=== PATIENT | female | born 1940 | race Caucasian/White ===

== ENCOUNTER → 2016-08-30 | Outpatient (CLI) | payer MEDICARE | END | disposition home or self-care (01) | LOC: KCIC MAMMO 12:35 | PROVIDERS: ATTEND Family Medicine | DX: Z12.31 Encounter for screening mammogram for malignant neoplasm of breast (principal) | CPT/HCPCS: G0202; 77067 ==

== ENCOUNTER → 2017-02-23 | Outpatient (CLI) | payer BC ==
[2017-02-23 14:36] LABS: BASO % 1 % (0-3); EOS % 1 % (0-3); HEMATOCRIT 41.8 % (36.0-47.0); HEMOGLOBIN 13.6 g/dL (12.0-15.5); LYMPH # 2.6 x10^3/uL (1.0-4.8); LYMPH % 40 % (24-48); MEAN CORPUSCULAR HEMOGLOBIN 28 pg (25-35); MEAN CORPUSCULAR HGB CONC 33 g/dL (31-37); MEAN CORPUSCULAR VOLUME 85 fL (79-100); MONO % 8 % (0-9); NEUT % 51 % (31-73); PLATELET COUNT 206 x10^3/uL (140-400); RED CELL DISTRIBUTION WIDTH 15.6 % (11.5-14.5); WHITE BLOOD COUNT 6.6 x10^3/uL (4.0-11.0)
[2017-02-23 15:00] LABS: ALBUMIN 3.9 g/dL (3.4-5.0); ALBUMIN/GLOBULIN RATIO 0.9 (1.0-1.7); CALCIUM 9.6 mg/dL (8.5-10.1); CREATININE 0.8 mg/dL (0.6-1.0); GFR 69.4; TOTAL BILIRUBIN 0.3 mg/dL (0.2-1.0); TOTAL PROTEIN 8.1 g/dL (6.4-8.2)
[2017-02-23 15:02] LABS: CHOLESTEROL/HDL RATIO 3.8
[2017-02-23 15:10] LABS: FREE T4 1.06 ng/dL (0.76-1.46)
== END ==
LOC: LAB 14:15
PROVIDERS: ATTEND Family Medicine
DX: J44.9 Chronic obstructive pulmonary disease, unspecified (principal); M89.9 Disorder of bone, unspecified; I10 Essential (primary) hypertension; F32.9 Major depressive disorder, single episode, unspecified
CPT/HCPCS: 36415; 80053; 80061; 82306; 84439; 84443; 85025

== ENCOUNTER → 2017-09-29 | Outpatient (CLI) | payer BC | END | disposition home or self-care (01) | LOC: KCIC MAMMO 12:39 | DX: Z12.31 Encounter for screening mammogram for malignant neoplasm of breast (principal) | CPT/HCPCS: 77063; 77067 ==

== ENCOUNTER → 2017-10-07 | Outpatient (CLI) | payer BC ==
[2017-10-07] MEDS: IOHEXOL 300 MG/ML 100ML VIAL. IV (10:53)
== END | disposition home or self-care (01) ==
LOC: KCIC CT 10:11
DX: E04.1 Nontoxic single thyroid nodule (principal); I77.810 Thoracic aortic ectasia; K44.9 Diaphragmatic hernia without obstruction or gangrene; I25.10 Atherosclerotic heart disease of native coronary artery without angina pectoris; I51.7 Cardiomegaly; Z85.118 Personal history of other malignant neoplasm of bronchus and lung
CPT/HCPCS: 71260; Q9967

== ENCOUNTER → 2017-10-18 | Outpatient (CLI) | payer BC | END | disposition home or self-care (01) | LOC: KCIC US 11:14 | DX: E04.1 Nontoxic single thyroid nodule (principal) | CPT/HCPCS: 76536 ==

== ENCOUNTER → 2018-03-27 | Outpatient (CLI) | payer BC ==
[~2018-03-27] MED LIST: BENZ-8 PO; FLUT10.6 IH; IPRA4AER IH; METO-239 PO; OMEP20CA9 PO; VENTOLIN HFA18 GM INH
--- NOTE | 2018-03-28 10:50 | KCIC ---
THYROID ULTRASOUND History: Thyroid nodule Comparison: October 18, 2017 Findings: Multiple sonographic images of the thyroid gland are submitted. Right lobe measured 4.4 x 1.3 x 1.6 cm the left lobe measured 4.9 x 1.5 x 1.7 cm. Isthmus measured 0.7 cm in thickness. There is a more solid somewhat heterogeneous nodule of the inferior medial right gland about 1 x 0.7 x 0.9 cm along the isthmus, mild internal vascularity. Previously this was measured at 0.7 x 0.7 x 0.5 cm, somewhat larger. There is another small solid heterogeneous nodule of the mid right gland about 0.5 by 0.6 x 0.4 cm in size, not demonstrated on previous exam. There is a hypoechoic lesion which is likely mostly cystic more superiorly of the right gland up to 0.5 x 0.3 x 0.4 cm which is fairly similar, probable small focus of associated calcification. There is another small solid nodule of the mid right gland about 0.6 cm in size, not demonstrated on the previous exam. There is a septated cystic lesion of the mid left gland about 2.5 x 1.2 x 2 cm previously about 2.6 x 2 x 1.3 cm overall similar. There is mild internal vascularity on color Doppler imaging. Impression: 1. On the right, 2 of the solid nodules are new or not demonstrated on previous exam. Previously demonstrated solid mass along the right isthmus is somewhat larger. Dominant partially cystic lesion on the left is stable. Electronically signed by: Fer Gomez MD (03/28/2018 10:46 AM) [facility]
== END | disposition home or self-care (01) ==
LOC: KCIC US 12:39
PROVIDERS: ATTEND Family Medicine
DX: E04.2 Nontoxic multinodular goiter (principal); I10 Essential (primary) hypertension; J44.9 Chronic obstructive pulmonary disease, unspecified; I25.10 Atherosclerotic heart disease of native coronary artery without angina pectoris; Z85.118 Personal history of other malignant neoplasm of bronchus and lung
CPT/HCPCS: 76536

== ENCOUNTER → 2018-04-25 | Outpatient (CLI) | payer BC ==
--- NOTE | 2018-04-25 16:20 | RAD ---
Indication: Bilateral thyroid nodule biopsy TECHNIQUE: After explaining risks and benefits of the procedure, informed consent was obtained. The skin over the thyroid was prepped and draped using usual sterile procedure. 1 percent lidocaine was used for local anesthesia. Under ultrasound guidance total of 4 FNA passes were made for each of the right and left thyroid nodules. Samples were collected by pathology staff. COMPARISON: Ultrasound from 03/27/2018 FINDINGS: Four FNA passes made for each of the right and left dominant nodules. The left multicystic lesion yielded dark brown-colored fluid. IMPRESSION: Bilateral thyroid nodule biopsy without immediate complications. Pathology results pending. Electronically signed by: Michael Hidalgo DO (04/25/2018 4:17 PM) [facility]
--- NOTE | 2018-04-27 14:10 | PATHOLOGY ---
Note [facility] Accession Number: [id number] TESTS RESULT FLAG UNITS REF RANGE LAB Clinician Provided Cytology Information No. of containers..01 Other (Miscellaneous) Source: LEFT THYROID DIAGNOSIS: LEFT THYROID ETHESDA CATEGORY II: NEGATIVE FOR MALIGNANT CELLS. SCANT FOLLICULAR CELLS ARE PRESENT. COLLOID IS PRESENT. FOAM CELLS ARE PRESENT. THE FINDINGS ARE CONSISTENT WITH A BENIGN PROCESS SUCH A COLLOID NODULE Signed out by: Santo Willard MD, Pathologist NPI- [id number] Performed by: Kaity Moreno, Fire And Explosion Investigator ([facility]) Gross description: 30ML, RED, SOLID /LCS FLAG LEGEND: L-Low Normal,H-High Normal,LL-Alert Low,HH-Alert High <-Panic Low,>-Panic High,A-Abnormal,AA-Critical Abnormal Performed at: [address] [place] [address] Jason Caruso MD, 02 [facility] [address] [place] [address] Jaziel Celaya MD, Specimen Comment: A courtesy copy of this report has been sent to Specimen Comment: [phone]. Specimen Comment: Report sent to Specimen Comment: A duplicate report has been generated due to demographic updates. Performed at: [address] [place] [address] [facility] [address], [place], [place] [id number] MD Jason Caruso MD Phone: [phone]
--- NOTE | 2018-04-28 09:09 | PATHOLOGY ---
Note [facility] Accession Number: [id number] TESTS RESULT FLAG UNITS REF RANGE LAB Clinician Provided Cytology Information No. of containers..01 Other (Miscellaneous) Source: RIGHT THYROID DIAGNOSIS: RIGHT THYROID NEGATIVE FOR MALIGNANT CELLS. BETHESDA CATEGORY II. SPECIMEN CONSISTS OF ABUNDANT BENIGN FOLLICULAR CELLS, HEMOSIDERIN-LADEN MACROPHAGES, SCANT COLLOID AND BLOOD. THE PATTERN IS CONSISTENT WITH A BENIGN PROCESS SUCH A COLLOID NODULE OR AN ADENOMATOID NODULE. Pathologist ICD10: 02 E04.1 Diagnosis provided b Santo Willard MD, Pathologist NPI- [id number] Signed out by: Santo Willard MD, Pathologist NPI- [id number] Performed by: Kaity Moreno, Talent Acquisition Assistant ([facility]) Gross description: 01 30ML, NONE, CLEAR /LCS FLAG LEGEND: L-Low Normal,H-High Normal,LL-Alert Low,HH-Alert High <-Panic Low,>-Panic High,A-Abnormal,AA-Critical Abnormal Performed at: [facility] [address] [facility] [address] [place] [address] Jason Caruso MD, 02 [facility] [address] [place] [address] Jaziel Celaya MD, 03 [facility] [address] [address] Tihago Hines MD, Specimen Comment: A courtesy copy of this report has been sent to Specimen Comment: [phone]. Specimen Comment: Report sent to Performed at: [address], [place], [place] [id number] MD Jason Caruso MD Phone: [phone]
== END | disposition home or self-care (01) ==
LOC: US 09:45
PROVIDERS: ATTEND Family Medicine
DX: E04.1 Nontoxic single thyroid nodule (principal)
CPT/HCPCS: 10022; 60300; 76942; 88173

== ENCOUNTER → 2018-10-02 | Outpatient (CLI) | payer BC ==
[~2018-10-02] MED LIST changes: +OMEP20CA10 PO; -OMEP20CA9 PO
--- NOTE | 2018-10-02 17:43 | KCIC ---
Bilateral digital screening mammograms with 3-D tomosynthesis: Reason for examination: Routine screening. Comparison is made to previous studies dated 09/29/2017 and 08/30/2016. Bilateral mammograms in CC and oblique projections were obtained with 2-D imaging and 3-D tomosynthesis imaging on a Siemens Inspiration unit and reviewed on the workstation. Interpretation was made with the benefit of CAD. The skin and nipples show no abnormalities. No abnormal axillary lymph nodes are seen. The breast parenchyma is extremely dense. (Breast density: Category D.) There are no dominant masses, suspicious calcifications or architectural distortion. Benign calcifications are present. Impression: No evidence of malignancy. Recommend routine screening. Your patient's mammogram demonstrates that she has dense breast tissue (breast density category C or D), which could hide abnormalities, and if she has other risk factors for breast cancer that have been identified, she might benefit from supplemental screening tests that may be suggested by you as her ordering physician. Dense breast tissue, in and of itself, is a relatively common condition. Therefore, this information is not provided to cause undue concern, but rather to raise your awareness and to promote discussion with your patient regarding the presence of other risk factors, in addition to dense breast tissue. Your patient's mammography results will be sent to her. BI-RAD Category 2: Benign. "Our facility is accredited by the [employer] Mammography Program." This patient's information has been entered into a reminder system for the patient to be notified with the results of her examination and a target date for the next mammogram. Electronically signed by: Dominique Abdi MD (10/02/2018 5:40 PM) [id number]
== END | disposition home or self-care (01) ==
LOC: KCIC MAMMO 14:01
PROVIDERS: ATTEND Family Medicine
DX: Z12.31 Encounter for screening mammogram for malignant neoplasm of breast (principal)
CPT/HCPCS: 77063; 77067

== ENCOUNTER → 2018-11-29 | Outpatient (CLI) | payer BC ==
--- NOTE | 2018-11-29 12:59 | KCIC ---
MRI of the brain without contrast 11/29/2018 Clinical History: Dysarthria. Slurred speech. Headache. Bilateral leg weakness. Hypertension. Technique: Unenhanced T1-weighted sagittal and axial, T2-weighted axial and coronal and FLAIR, gradient echo and diffusion-weighted axial images of the brain were obtained. Findings: Comparison is made to patient's CT scan of the head dated 12/26/2012. There is generalized parenchymal atrophy. Patchy, confluent and multiple small focal areas of increased signal intensity are seen within the periventricular and subcortical white matter of both cerebral hemispheres on the FLAIR and T2-weighted images consistent with areas of fairly extensive small vessel ischemic disease. No acute parenchymal abnormality is seen. No extra-axial fluid collection is seen. There is no MRI evidence of acute ischemia/infarction. The paranasal sinuses are essentially clear. Normal flow voids are seen within the major vascular structures surrounding the brain parenchyma. Impression: No acute parenchymal abnormality is seen. Electronically signed by: Hector Rainey MD (11/29/2018 12:56 PM) [facility]
== END | disposition home or self-care (01) ==
LOC: KCIC MRI 10:39
PROVIDERS: ATTEND Family Medicine
DX: G31.89 Other specified degenerative diseases of nervous system (principal); I10 Essential (primary) hypertension
CPT/HCPCS: 70551

== ENCOUNTER → 2019-01-09 | Outpatient (CLI) | payer BC ==
--- NOTE | 2019-01-09 15:09 | KCIC ---
Clinical Indications: Hypertension, cerebral microvascular disease. Exam : Carotid Duplex with Grayscale Ultrasound and Spectral and Color Doppler Analysis: PQRS Compliance Statement - Stenosis calculations for CT, MR and conventional angiography are based upon measurement of the distal ICA diameter in accordance with the NASCET methodology. Stenosis calculations for carotid ultrasound studies are derived from validated velocity criteria which are known to correlate with the NASCET methodology. Comparison study: None available. Findings: The common, internal and external carotid arteries were examined by grayscale, color and spectral Doppler ultrasound. Mild atherosclerotic calcifications identified in the bilateral carotid bulbs and the proximal internal and external carotid arteries. Flow in both vertebral arteries was antegrade and normal. The following are the velocities and ratios in the carotid arteries on both sides: RIGHT ICA PV: 95cm/sec RIGHT CCA PV: 73cm/sec RIGHT ICA ED: 21cm/sec RIGHT IC/CCPV: 1.1 RIGHT VERTEBRAL: antegrade flow RIGHT % STENOSIS: Less than 50% LEFT ICA PV: 78cm/sec LEFT CCA PV: 66cm/sec LEFT ICA ED: 21cm/sec LEFT IC/CCPV: 1.2 LEFT VERTEBRAL: antegrade flow LEFT % STENOSIS: Less than 50% <50% ICA Stenosis: PSV < 125cm/s (EDV < 40cm/s; SVR < 2.0) 50-69% ICA Stenosis: PSV < 125-229cm/s (EDV 40-99cm/s; SVR 2.0-3.9) >70% ICA Stenosis: PSV > 230cm/s (EDV >100cm/s; SVR >4.0) Impression: No evidence of hemodynamically significant stenosis. Electronically signed by: Bam Dumont MD (01/09/2019 3:06 PM) [facility]
== END | disposition home or self-care (01) ==
LOC: KCIC US 10:32
PROVIDERS: ATTEND Family Medicine
DX: I65.23 Occlusion and stenosis of bilateral carotid arteries (principal); I10 Essential (primary) hypertension
CPT/HCPCS: 93880

== ENCOUNTER → 2019-01-24 | Outpatient (CLI) | payer BC ==
--- NOTE | 2019-01-24 14:00 | KCIC ---
CT of the chest without contrast 01/24/2019 INDICATION: History of lung cancer COMPARISON STUDY: Chest CT October 07, 2017, January 08, 2016 TECHNIQUE: Multidetector CT imaging of the chest was performed without contrast. FINDINGS: Anterior mediastinal nodule measuring 2.1 x 1.3 cm is stable. Heart size is normal. No pericardial effusion of significance is seen. Coronary calcification noted. Mild ectasia of the ascending thoracic aorta to 3.9 cm is grossly stable. No pathologically enlarged mediastinal adenopathy is identified. Cystic nodule within the left thyroid gland has significantly increased in size measuring 2.7 cm in maximal diameter. CT is limited for evaluation of the thyroid. Consider follow-up ultrasound given change from comparison studies. Paraesophageal hernia is similar in appearance. No pneumothorax or pleural effusion is identified. No acute appearing focal consolidation is seen. Limited visualization of the upper abdomen is unremarkable. Bony thorax is grossly intact. Impression: 1. Stable anterior mediastinal nodule 2. Cystic nodule in the left thyroid is increase in size measuring 2.7 cm on today's exam previously measuring approximately 1.5 cm. Recommend follow-up ultrasound for further characterization. 3. Otherwise stable appearance of the chest. Chronic changes noted above. CT DOSING PQRS STATEMENT: One or more of the following individualized dose reduction techniques were utilized for this examination: 1. Automated exposure control 2. Adjustment of the mA and/or kV according to patient size 3. Use of iterative reconstruction technique Electronically signed by: Vincent Park MD (01/24/2019 1:57 PM) [id number]
== END | disposition home or self-care (01) ==
LOC: KCIC CT 12:18
PROVIDERS: ATTEND Internal Medicine Pulmonary Disease
DX: J98.59 Other diseases of mediastinum, not elsewhere classified (principal); J44.9 Chronic obstructive pulmonary disease, unspecified; I77.810 Thoracic aortic ectasia; I25.10 Atherosclerotic heart disease of native coronary artery without angina pectoris; E04.1 Nontoxic single thyroid nodule; K44.9 Diaphragmatic hernia without obstruction or gangrene; I10 Essential (primary) hypertension; Z85.118 Personal history of other malignant neoplasm of bronchus and lung; Z87.891 Personal history of nicotine dependence
CPT/HCPCS: 71250

== ENCOUNTER → 2019-02-12 | Outpatient (CLI) | payer BC ==
--- NOTE | 2019-02-12 13:59 | KCIC ---
US SOFT TISSUE HEAD AND NECK CLINICAL INDICATION: Thyroid nodules. Follow-up. PROCEDURE: Transverse and longitudinal grayscale and color Doppler images of the thyroid were obtained. COMPARISON: 03/27/2018 FINDINGS: Right: Measures 3.6 x 1.8 x 2.1 cm. Multiple hypoechoic nodules are seen in the right thyroid lobe, the largest mixed echogenicity nodule in the inferior thyroid lobe measuring 1.0 x 0.8 x 0.8 cm, previously 1.0 x 0.7 x 0.9 cm. Isthmus: Measures 4.4 mm and is within normal limits. Left: Measures 4.5 x 2.7 x 1.8 cm with multiple nodules. There is a large solid and cystic nodule in the inferior left thyroid lobe measuring 3.0 x 2.0 x 2.6, previously 2.5 x 1.2 x 2.0 cm. Another hypoechoic nodule adjacent to the above-mentioned dominant nodule measures 0.9 x 0.5 x 1.0 cm. IMPRESSION: 1. Multiple right thyroid lobe nodules, the dominant nodule is stable in size. 2. Interval increase in the size of complex left lower thyroid lobe nodule. Clinically correlate with previous. Short-term follow-up ultrasound recommended. Electronically signed by: Michael Hidalgo DO (02/12/2019 1:57 PM) [facility]
== END | disposition home or self-care (01) ==
LOC: KCIC US 12:09
PROVIDERS: ATTEND Family Medicine
DX: E04.2 Nontoxic multinodular goiter (principal)
CPT/HCPCS: 76536

== ENCOUNTER → 2019-12-26 | Outpatient (CLI) | payer BC ==
[~2019-12-26] MED LIST changes: -OMEP20CA10 PO; +OMEP20CA16 PO
--- NOTE | 2019-12-26 13:19 | RAD ---
THYROID ULTRASOUND History: Thyroid nodule. Comparison: Thyroid ultrasound February 12, 2019. Technique: Multiple grayscale and color Doppler images of the thyroid gland were obtained. Findings: Measurements in length, AP (height), and transverse (width), respectively, unless otherwise stated. The right thyroid lobe measures 4 x 2 x 1.4 cm. There are multiple tiny nodules in the right thyroid lobe. Dominant nodule inferiorly has maximum dimension of 10 mm, unchanged. This nodule is characterized as TR3. The isthmus measures 5 mm. Left thyroid lobe measures 5.1 x 1.5 x 2.8 cm. TR3 nodule of the mid left thyroid lobe has maximum dimension of 12 mm, previously 10 mm, mainly due to differences in measurement technique. Dominant nodule in the inferior left thyroid lobe measures 3.1 x 2.2 x 2.7 cm, previously 3.0 x 1.9 x 2.6 cm. Nodule previously was more solid than cystic but is now more cystic than solid and is characterized as TR2. ACR Thyroid Imaging, Reporting And Data System (TI-RADS): White Paper Of The ACR TI-RADS Committee. Journal of the [employer], volume 14, issue 5, pages 587-595 (October 2016). IMPRESSION: Thyroid nodules are not significantly changed. Electronically signed by: Juan Cabrera MD (12/26/2019 1:16 PM) [id number]
== END | disposition home or self-care (01) ==
LOC: US 10:12
PROVIDERS: ATTEND Family Medicine
DX: E04.1 Nontoxic single thyroid nodule (principal)
CPT/HCPCS: 76536

== ENCOUNTER → 2020-10-22 | Outpatient (CLI) | payer MEDICARE ==
[~2020-10-22] MED LIST changes: +CONTRAST GIVEN. MC PRN; +IOHEXOL 240 MG/ML 50ML VIAL. PO ONE; +IOHEXOL 300 MG/ML 100ML VIAL. IV ONE
--- NOTE | 2020-10-22 14:20 | KCIC ---
EXAM: Lumbar spine, 3 views. HISTORY: Pain. COMPARISON: None. FINDINGS: 3 views of the lumbar spine are obtained. There is lumbar dextroscoliosis and straightening of lumbar lordosis. There is grade 1 anterolisthesis of L3 on L4 and L4 on L5. There is complete los s of the disc space at L3-L4 and near complete loss of the disc space at L4-L5. There is multilevel e ndplate remodeling and facet arthropathy. L IMPRESSION: Multilevel degenerative change throughout the lumbar spine, primarily at L3-L4 and L4-L5. No acute osseous finding. Electronically signed by: Jeni Fuentes MD (10/22/2020 2:17 PM) [id number]
--- NOTE | 2020-10-22 16:50 | KCIC ---
EXAM: Abdomen and pelvis CT with intravenous contrast. HISTORY: Pain. TECHNIQUE: Computed tomographic images of the abdomen and pelvis were obtained following the administ ration of intravenous contrast. Multiplanar reformatting was performed. *One or more of the following individualized dose reduction techniques were utilized for this examina tion: 1. Automated exposure control. 2. Adjustment of the mA and/or kV according to patient size. 3. Use of iterative reconstruction technique. COMPARISON: None. FINDINGS: Evaluation of the lower thorax demonstrates a large hiatal hernia with intrathoracic positi oning of the stomach. There is cardiomegaly. There is calcification of the aortic valve and mitral va lve annulus. There is a small hepatic cyst. No suspicious hepatic lesion is seen. The gallbladder, pa ncreas, spleen and adrenal glands are unremarkable. There is a horseshoe kidney. The renal moieties are connected by thin band of soft tissue. There are is a dilated left renal pelvis. No obstructing lesion is seen. The bladder is unremarkable. The uteru s and adnexal regions are unremarkable. There is no appendicitis. There is no bowel obstruction. There is distal colonic diverticulosis. Ther e is no convincing diverticulitis. There is aortic and aortic branch vessel atherosclerosis. There is no lymphadenopathy. There is no suspicious osseous lesion. There is degenerative change and multilev el listhesis involving the mid and lower lumbar spine. IMPRESSION: 1. Distal colonic diverticulosis. There is no convincing diverticulitis. 2. Large hiatal hernia with intrathoracic positioning of the stomach. 3. Horseshoe kidney. There is a dilated left renal moiety pelvis without evidence of an obstructing l esion. This may be due to pelviectasis or extrarenal pelvis. 4. Tiny hepatic cyst. 5. Aortic valve calcification. Electronically signed by: Jeni Fuentes MD (10/22/2020 4:48 PM) [id number]
== END ==
LOC: KCIC CT 13:53
PROVIDERS: ATTEND Family Medicine
DX: M47.816 Spondylosis without myelopathy or radiculopathy, lumbar region (principal); K57.30 Diverticulosis of large intestine without perforation or abscess without bleeding; K44.9 Diaphragmatic hernia without obstruction or gangrene; K76.89 Other specified diseases of liver; I35.1 Nonrheumatic aortic (valve) insufficiency
CPT/HCPCS: 72100; 74177; 82565; Q9966; Q9967

== ENCOUNTER 2020-12-17 06:05 | Emergency (ER) | payer MEDICARE ==
[~2020-12-17] VITALS: Ht 165.1 cm; Wt 80.0 kg
[~2020-12-17 06:05] MED LIST changes: -CONTRAST GIVEN. MC PRN; -IOHEXOL 240 MG/ML 50ML VIAL. PO ONE; -IOHEXOL 300 MG/ML 100ML VIAL. IV ONE
[2020-12-17] MEDS ORDERED: CITA10TA8 PO (06:32)
[2020-12-17] MEDS ORDERED: OMEP20CA16 PO (06:32)
--- NOTE | 2020-12-17 06:33 | PHYS DOC ---
Past Medical History Past Medical History: CHF, Constipation, COPD, Depression, Diverticulosis, GERD, Hypertension, Lung Disease, Sinusitis, UTI Additional Past Medical Histor: llung cancer, "back slipped disc" 3 x breast bx Past Surgical History: Other Additional Past Surgical Histo: R lower lobe lung resection after cancer,periph neuro,bilat knee,feet Smoking Status: Former Smoker Alcohol Use: Occasionally General Adult EDM: Chief Complaint: ABDOMINAL PAIN HPI: HPI: Patient is a 80 year old female who was brought here by EMS from home due to epigastric abdominal pain, left lower abdominal pain that been going on for months. The pain became more intolerable this morning so she called EMS to take her here for evaluation. Patient took some pain medication last night before she went to sleep. Patient denies any fever. Patient was fully vaccinated for COVID-19. Patient denies any chest pain, no trouble breathing, no cough, no fever. Patient had this type pain more than a month ago, she was seen by her family physician, CT scan of abdomen pelvis did not show any acute problem besides a large hiatal hernia. Patient also complained of pain with urination Review of Systems: Review of Systems: Constitutional: Denies fever or chills. [] Eyes: Denies change in visual acuity. [] HENT: Denies nasal congestion or sore throat. [] Respiratory: Denies cough or shortness of breath. [] Cardiovascular: Denies chest pain or edema. [] GI: Positive for abdominal pain, no nausea vomiting, no diarrhea. : Positive for dysuria. [] Musculoskeletal: Denies back pain or joint pain. [] Integument: Denies rash. [] Neurologic: Denies headache, focal weakness or sensory changes. [] Endocrine: Denies polyuria or polydipsia. [] Lymphatic: Denies swollen glands. [] Psychiatric: Denies depression or anxiety. [] Heart Score: C/O Chest Pain: N/A Risk Factors: Risk Factors: DM, Current or recent (<one month) smoker, HTN, HLP, family history of CAD, obesity. Risk Scores: Score 0 - 3: 2.5% MACE over next 6 weeks - Discharge Home Score 4 - 6: 20.3% MACE over next 6 weeks - Admit for Clinical Observation Score 7 - 10: 72.7% MACE over next 6 weeks - Early Invasive Strategies Allergies: Allergies: Allergies Coded Allergies Type Severity Reaction Last Updated Verified No Known Drug Allergies 10/07/17 No Physical Exam: PE: Constitutional: Well developed, well nourished, no acute distress, non-toxic appearance. [] HENT: Normocephalic, atraumatic, bilateral external ears normal, oropharynx moist, no oral exudates, nose normal. [] Eyes: PERRLA, EOMI, conjunctiva normal, no discharge. [] Neck: Normal range of motion, no tenderness, supple, no stridor. [] Cardiovascular:Heart rate regular rhythm, no murmur [] Lungs & Thorax: Bilateral breath sounds clear to auscultation [] Abdomen: Bowel sounds normal, soft, There is tenderness to palpation on LLQ, no masses, no pulsatile masses. [] Skin: Warm, dry, no erythema, no rash. [] Back: No tenderness, no CVA tenderness. [] Extremities: No tenderness, no cyanosis, no clubbing, ROM intact, no edema. [] Neurologic: Alert and oriented X 3, normal motor function, normal sensory function, no focal deficits noted. [] Psychologic: Affect normal, judgement normal, mood normal. [] Current Patient Data: Labs: Laboratory Tests Test 12/17/20 06:28 12/17/20 07:27 12/17/20 07:43 Sodium Level 143 mmol/L Potassium Level 3.4 mmol/L Chloride Level 107 mmol/L Carbon Dioxide Level 32 mmol/L Anion Gap 4 Blood Urea Nitrogen 14 mg/dL Creatinine 0.8 mg/dL Estimated GFR (Cockcroft-Gault) 68.7 BUN/Creatinine Ratio 18 Glucose Level 96 mg/dL Calcium Level 8.9 mg/dL Magnesium Level 2.0 mg/dL Total Bilirubin 0.3 mg/dL Aspartate Amino Transf (AST/SGOT) 15 U/L Alanine Aminotransferase (ALT/SGPT) 12 U/L Alkaline Phosphatase 72 U/L Total Protein 7.0 g/dL Albumin 3.5 g/dL Albumin/Globulin Ratio 1.0 Lipase 186 U/L Urine Color Yellow Urine Clarity Clear Urine pH 6.0 Urine Specific [place] >=1.030 Urine Protein Negative mg/dL Urine Glucose (UA) Negative mg/dL Urine Ketones (Stick) Negative mg/dL Urine Blood Negative Urine Nitrite Positive Urine Bilirubin Negative Urine Urobilinogen Dipstick 1.0 mg/dL Urine Leukocyte Esterase Small Urine RBC Occ /HPF Urine WBC 5-10 /HPF Urine Squamous Epithelial Cells Mod /LPF Urine Bacteria Many /HPF White Blood Count 7.4 x10^3/uL Red Blood Count 4.33 x10^6/uL Hemoglobin 12.0 g/dL Hematocrit 36.7 % Mean Corpuscular Volume 85 fL Mean Corpuscular Hemoglobin 28 pg Mean Corpuscular Hemoglobin Concent 33 g/dL Red Cell Distribution Width 16.0 % Platelet Count 196 x10^3/uL Neutrophils (%) (Auto) 64 % Lymphocytes (%) (Auto) 26 % Monocytes (%) (Auto) 7 % Eosinophils (%) (Auto) 2 % Basophils (%) (Auto) 1 % Neutrophils # (Auto) 4.8 x10^3/uL Lymphocytes # (Auto) 1.9 x10^3/uL Monocytes # (Auto) 0.5 x10^3/uL Eosinophils # (Auto) 0.1 x10^3/uL Basophils # (Auto) 0.1 x10^3/uL Current Medications Medications (Trade) Dose Ordered Sig/Odette Route PRN Reason Start Time Stop Time Status Last Admin Dose Admin Iohexol (Omnipaque 300 Mg/ml) 75 ml 1X ONCE IV 12/17/20 07:45 12/17/20 07:46 DC 12/17/20 08:10 Info (CONTRAST GIVEN -- Rx MONITORING) 1 each PRN DAILY PRN MC SEE COMMENTS 12/17/20 07:45 12/19/20 07:44 Vital Signs: Vital Signs Date Time Temp Pulse Resp B/P (MAP) Pulse Ox O2 Delivery O2 Flow Rate FiO2 12/17/20 06:20 98.0 57 18 98 Room Air 98.0 EKG: EKG: [] Radiology/Procedures: Radiology/Procedures: [][facility] [address] [place] [address] IMAGING REPORT Signed PATIENT: ROLAND ARE ACCOUNT: [id number] : 1940 LOCATION: ER AGE: 80 SEX: F EXAM STATUS: REG ER ORD. PHYSICIAN: BOUBACAR BARRIENTOS DO REASON: LLQ ABDOMINAL PAIN PROCEDURE: CT ABD PELV W/ IV CONTRST ONLY EXAMINATION: CT abdomen and pelvis with IV contrast. INDICATION:80 years, Female, left lower quadrant abdominal pain. TECHNIQUE: Axial CT images of the abdomen and pelvis were obtained. Coronal and sagittal reformatted performed. COMPARISON: CT dated 10/22/2020 cubic. Exposure: One or more of the following individualized dose reduction techniques were utilized for this examination: 1. Automated exposure control 2. Adjustment of the mA and/or kV according to patient size 3. Use of iterative reconstruction technique. FINDINGS: LOWER CHEST: Bibasilar subsegmental atelectasis versus scarring. Severe coronary artery atherosclerotic calcifications. ABDOMEN/PELVIS: No suspicious focal hepatic lesion. Unchanged small left hepatic lobe cyst. Unremarkable gallbladder, biliary ducts and spleen. Severe atrophic pancreas with fat infiltration. No adrenal nodule. 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 Unch anged 2 cm proximal intraduodenal lipoma. Severe sigmoid diverticulosis without diverticulitis. Appendix is not visualized. No bowel obstruction or wall thickening. Moderate aortoiliac atherosclerotic calcifications without significant narrowing or dilation. Mesenteric arteries and portal vein are patent. No pneumoperitoneum or ascites. No abdominopelvic lymphadenopathy by size criteria. Underdistended urinary bladder which limits evaluation. Unremarkable uterus. No suspicious pelvic masses. MUSCULOSKELETAL: No acute osseous process. Grade 1 anterolisthesis of L4 over L5. Severe multilevel degenerative changes in the spine. IMPRESSION: 1. No acute abnormality in the abdomen or pelvis. 2. Extensive sigmoid diverticulosis without diverticulitis. 3. 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 4. Other chronic/incidental findings, as described above. Electronically signed by: Milton Todd MD (12/17/2020 8:38 AM) [facility] DICTATED and SIGNED BY: MILTON TODD MD DATE: 12/17/20 [id number] 0 Course & Med Decision Making: Course & Med Decision Making Pertinent Labs and Imaging studies reviewed. (See chart for details) Patient is an 80-year-old female who present to ER due to abdominal pain with painful urination. Patient was found to have urinary tract infection, her pain is also most likely due to the large hiatal hernia that she has. Patient was discharged home with Nexium, Carafate, and antibiotic for the UTI. Dragon Disclaimer: Gloria Disclaimer: This electronic medical record was generated, in whole or in part, using a voice recognition dictation system. Departure Departure Impression: Primary Impression: Abdominal pain Additional Impressions: UTI (urinary tract infection) Hiatal hernia Disposition: HOME / SELF CARE / HOMELESS Condition: IMPROVED Referrals: SHAY WARREN MD (PCP) Please follow up with your doctor this week for reevaluation Patient Instructions: Abdominal Pain, Hiatal Hernia, Urinary Tract Infection Additional Instructions: Thank you for visiting our Emergency Department. We appreciate you trusting us with your care. If any additional problems come up don't hesitate to return to visit us. Please follow up with your primary care provider so they can plan additional care if needed and know about the problem that you had. If symptoms worsen come back to the Emergency Department. Any concerning symptoms that start such as chest pain, shortness of air, weakness or numbness on one side of the body, running high fevers or any other concerning symptoms return to the ER. Scripts Cephalexin (CEPHALEXIN) 500 Mg Tablet 1 TAB PO TID for 7 Days, #21 TAB Prov: BOUBACAR BARRIENTOS DO 12/17/20 Sucralfate (CARAFATE) 1 Gm Tablet 1 TAB PO QID for 14 Days, #56 TAB 0 Refills Prov: BOUBACAR BARRIENTOS DO 12/17/20 Esomeprazole Magnesium (NEXIUM CAPSULE) 40 Mg Capsule. 1 CAP PO DAILY for 30 Days, #30 CAP 5 Refills Prov: BOUBACAR BARRIENTOS DO 12/17/20 BOUBACAR BARRIENTOS DO Dec 17, 2020 06:33
[2020-12-17 06:52] LABS: CALCIUM 8.9 mg/dL (8.5-10.1); CREATININE 0.8 mg/dL (0.6-1.0); GFR 68.7; POTASSIUM 3.4 mmol/L (3.5-5.1)
[2020-12-17 06:58] LABS: ALBUMIN 3.5 g/dL (3.4-5.0); TOTAL BILIRUBIN 0.3 mg/dL (0.2-1.0)
[2020-12-17] MEDS ORDERED: CONTRAST GIVEN. MC PRN (07:45)
[2020-12-17] MEDS ORDERED: IOHEXOL 300 MG/ML 100ML VIAL. IV ONE (07:45)
[2020-12-17 07:57] LABS: BASO # 0.1 x10^3/uL (0.0-0.2); BASO % 1 % (0-3); EOS # 0.1 x10^3/uL (0.0-0.7); EOS % 2 % (0-3); HEMATOCRIT 36.7 % (36.0-47.0); LYMPH # 1.9 x10^3/uL (1.0-4.8); LYMPH % 26 % (24-48); MEAN CORPUSCULAR HEMOGLOBIN 28 pg (25-35); MEAN CORPUSCULAR HGB CONC 33 g/dL (31-37); MEAN CORPUSCULAR VOLUME 85 fL (79-100); MONO # 0.5 x10^3/uL (0.0-1.1); MONO % 7 % (0-9); NEUT # 4.8 x10^3/uL (1.8-7.7); NEUT % 64 % (31-73); PLATELET COUNT 196 x10^3/uL (140-400); RED BLOOD COUNT 4.33 x10^6/uL (3.50-5.40); WHITE BLOOD COUNT 7.4 x10^3/uL (4.0-11.0)
[2020-12-17 07:57] LABS: BILIRUBIN,URINE NEGATIVE (NEG); CLARITY,URINE CLEAR; COLOR,URINE YELLOW; NITRITE,URINE POSITIVE (NEG); PROTEIN,URINE NEGATIVE (NEG-TRACE)
[2020-12-17 08:10] LABS: BACTERIA,URINE MANY /HPF (0-FEW); RBC,URINE OCC /HPF (0-2)
--- NOTE | 2020-12-17 08:41 | RAD ---
EXAMINATION: CT abdomen and pelvis with IV contrast. INDICATION:80 years, Female, left lower quadrant abdominal pain. TECHNIQUE: Axial CT images of the abdomen and pelvis were obtained. Coronal and sagittal reformatted performed. COMPARISON: CT dated 10/22/2020 cubic. Exposure: One or more of the following individualized dose reduction techniques were utilized for thi s examination: 1. Automated exposure control 2. Adjustment of the mA and/or kV according to patient size 3. Use of iterative reconstruction technique. FINDINGS: LOWER CHEST: Bibasilar subsegmental atelectasis versus scarring. Severe coronary artery atherosclerotic calcificat ions. ABDOMEN/PELVIS: No suspicious focal hepatic lesion. Unchanged small left hepatic lobe cyst. Unremarkable gallbladder, biliary ducts and spleen. Severe atrophic pancreas with fat infiltration. No adrenal nodule. Horsesh oe kidney with no hydronephrosis or nephrolithiasis. Large hiatal hernia containing organoaxial malrotated proximal stomach. Unchanged 2 cm proximal intra duodenal lipoma. Severe sigmoid diverticulosis without diverticulitis. Appendix is not visualized. No bowel obstruction or wall thickening. Moderate aortoiliac atherosclerotic calcifications without sig nificant narrowing or dilation. Mesenteric arteries and portal vein are patent. No pneumoperitoneum o r ascites. No abdominopelvic lymphadenopathy by size criteria. Underdistended urinary bladder which l imits evaluation. Unremarkable uterus. No suspicious pelvic masses. MUSCULOSKELETAL: No acute osseous process. Grade 1 anterolisthesis of L4 over L5. Severe multilevel degenerative mondragon es in the spine. IMPRESSION: 1. No acute abnormality in the abdomen or pelvis. 2. Extensive sigmoid diverticulosis without diverticulitis. 3. 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 4. Other chronic/incidental findings, as described above. Electronically signed by: Juan C Todd MD (12/17/2020 8:38 AM) [facility]
[2020-12-17] MEDS ORDERED: cefTRIAXone IV Push 1 GM VIAL. IVP ONE (09:45)
[2020-12-17] MEDS ORDERED: ESOM40CA PO (10:19)
[2020-12-17] MEDS ORDERED: SUCR1TAB35 PO (10:19)
[2020-12-17] MEDS ORDERED: CEPH500T PO (10:19)
[2020-12-17 10:20] VITALS: BP 203/88
[2020-12-17] MEDS ORDERED: IOHEXOL 300 MG/ML 100ML VIAL. ONE (13:20)
== END 2020-12-17 10:37 | disposition home or self-care (01) ==
LOC: ER 06:05
DX: N39.0 Urinary tract infection, site not specified (principal); K44.9 Diaphragmatic hernia without obstruction or gangrene; J44.9 Chronic obstructive pulmonary disease, unspecified; K21.9 Gastro-esophageal reflux disease without esophagitis; I11.0 Hypertensive heart disease with heart failure; I50.9 Heart failure, unspecified; Z87.891 Personal history of nicotine dependence
CPT/HCPCS: 36415; 74177; 80053; 81001; 83690; 83735; 85025; 87086; 96374; 99285; J0696; Q9967

== ENCOUNTER → 2021-02-05 | Outpatient (CLI) | payer MEDICARE ==
[~2021-02-05] VITALS: Ht 160 cm; Wt 83.9 kg
[~2021-02-05] MED LIST changes: +CEPH500T PO; +CITA10TA8 PO; +ESOM40CA PO; +SINCALIDE 1.7 MCG in IV NORMAL SALINE 50ML 30 ML IV ONE; +SUCR1TAB35 PO
--- NOTE | 2021-02-05 09:20 | RAD ---
EXAMINATION: US ABDOMEN LIMITED 02/05/2021 7:45 AM INDICATION: Right upper quadrant abdominal pain TECHNIQUE: Small scale and color Doppler ultrasound images of the right upper quadrant were obtained. COMPARISON: CT abdomen pelvis 12/17/2020. FINDINGS: Liver: The liver is normal in size measuring 14 cm in length. Mildly increased hepatic echogenicity. No focal liver lesion. Gallbladder: The gallbladder is normal in caliber. No cholelithiasis or sludge. The gallbladder wa ll is normal in thickness measuring 2 mm. Bile ducts: The common bile duct is normal measuring 2.5 mm. No intrahepatic biliary duct dilatatio n. Right kidney: The right kidney measures 9.7 x 3.8 x 3.8 cm. Horseshoe configuration of the kidneys be tter seen on prior CT. Normal cortical thickness and echogenicity. No hydronephrosis. Other: IVC is normal where visualized. The pancreas is not well visualized due to bowel gas. IMPRESSION: 1. Mildly increased hepatic echogenicity, some of this may be technical but a component of hepatic st eatosis is possible. 2. Unremarkable gallbladder. 3. Pancreas not well visualized due to bowel gas. Electronically signed by: Jyothi Coates MD (02/05/2021 9:17 AM) [id number]
--- NOTE | 2021-02-05 11:02 | RAD ---
EXAM: HEPATOBILIARY SCINTIGRAPHY WITH GALLBLADDER EJECTION FRACTION CALCULATION. HISTORY: Abdominal pain/nausea. TECHNIQUE: 5.3 mCi technetium-99m Choletec were administered intravenously and scintigraphic images o f the abdomen obtained. After filling of the gallbladder, 1.7 mcg of sincalide were infused and the g allbladder ejection fraction calculated. FINDINGS: There is prompt hepatic clearance of tracer from the blood pool. There is homogeneous distr ibution throughout the liver. There is normal filling of the gallbladder and clearance into the bilia ry tree and small bowel. The gallbladder ejection fraction is 26% (normal >35%). IMPRESSION: 1. Decreased gallbladder ejection fraction suggesting biliary dyskinesia. Electronically signed by: Milad Hurd MD (02/05/2021 11:00 AM) [id number]
== END ==
LOC: US 08:39
PROVIDERS: ATTEND Internal Medicine Gastroenterology
DX: R10.11 Right upper quadrant pain (principal); R11.0 Nausea
CPT/HCPCS: 76705; 78227; A9537; J2805

== ENCOUNTER → 2021-02-24 | Outpatient (CLI) | payer BC, MEDICARE ==
[~2021-02-24] MED LIST changes: -SINCALIDE 1.7 MCG in IV NORMAL SALINE 50ML 30 ML IV ONE
--- NOTE | 2021-02-24 14:42 | KCIC ---
CT THORAX WO dated 02/24/2021 10:18 AM Indication:Reason: Hx, lung cancer w/Rt lobectomy 2009, COPD, past smoker. / Spl. Instructions: / Hi story: Comparison: CT 10/07/2017. More recent scan could not be retrieved for comparison at this time. Technique: Helical noncontrast images were performed. Sagittal and coronal reconstructions were obtai lorenzo. One or more of the following individualized dose reduction techniques were utilized for this examinat ion: 1. Automated exposure control 2. Adjustment of the mA and/or kV according to patient size 3. Use of iterative reconstruction technique Findings: There are postoperative changes suggesting right lower lobectomy. No new or recurrent mass is seen. T here is a left side diaphragmatic hernia with a portion of the stomach extending into the lower chest . There is some adjacent atelectasis. No other significant pulmonary parenchymal abnormality is seen. The remaining central airways show no obstruction. No enlarged axillary lymph nodes are seen. Evalua tion of the fransisco and mediastinum is slightly limited by the noncontrast technique. There is no obviou s hilar adenopathy. There is an oval soft tissue density nodule in the anterior mediastinum near the level of the main pulmonary artery. This measures about 2.3 cm across. Internal density measures abou t 44 Hounsfield units. No enlarged mediastinal nodes are seen elsewhere. A small cystic left thyroid nodule is again seen. Images through the upper abdomen show no significant abnormality. Bone windows show no new lesion. IMPRESSION: No evidence of recurrent lung mass. Stable appearance of anterior mediastinal nodule. Electronically signed by: Ariel Narvaez Jr., MD (02/24/2021 2:40 PM) [id number]
== END ==
LOC: KCIC CT 10:13
PROVIDERS: ATTEND Internal Medicine Pulmonary Disease
DX: C34.90 Malignant neoplasm of unspecified part of unspecified bronchus or lung (principal); J98.11 Atelectasis; E04.1 Nontoxic single thyroid nodule; K44.9 Diaphragmatic hernia without obstruction or gangrene; Z98.890 Other specified postprocedural states
CPT/HCPCS: 71250

== ENCOUNTER → 2021-03-16 | Outpatient (CLI) | payer MEDICARE ==
--- NOTE | 2021-03-17 14:00 | KCIC ---
Examination: Upper GI examination, with preliminary film History: Hiatal hernia, reflux Findings: The preliminary film demonstrates a large hiatal hernia. The esophagus is normal in contour and caliber. A normal primary stripping wave is demonstrated. Chr onic organoaxial malrotation of the stomach is identified similar to prior CT scan with intrathoracic stomach on the left. No spontaneous gastroesophageal reflux was elicited. The esophageal and gastric mucosa are within normal limits. The duodenal sweep appears unremarkable. No constricting mass is id entified. 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 Total fluoroscopic time 1 minute and 20 seconds. Total fluoroscopic images 11. Electronically signed by: Bam Dumont MD (03/17/2021 1:15 PM) [id number]
== END ==
LOC: KCIC 12:35
PROVIDERS: ATTEND Surgery
DX: K21.9 Gastro-esophageal reflux disease without esophagitis (principal); K44.9 Diaphragmatic hernia without obstruction or gangrene
CPT/HCPCS: 74240

== ENCOUNTER → 2021-03-26 | Outpatient (CLI) | payer MEDICARE ==
--- NOTE | 2021-03-26 17:15 | KCIC ---
Bilateral digital screening 2-D and 3-D mammogram: Reason for examination: Routine screening. Comparison: Mammograms from 09/29/2017 and 08/30/2016. Bilateral mammograms in CC and oblique projections were obtained with 2-D imaging and 3-D tomosynthes is imaging and reviewed on the workstation. Interpretation was made with the benefit of CAD. FINDINGS: Breast density: Category C. There is heterogeneously dense fibroglandular tissue, which may obscure s mall masses. No suspicious breast mass, malignant appearing calcifications, or architectural distortion is seen. T here numerous stable bilateral benign calcifications with groups on the right suggestive of degenerat ed fibroadenomas. IMPRESSION: No evidence of malignancy. Assessment: BI-RADS 2. Benign findings. Recommendation: Routine screening mammograms. Your patient's mammogram demonstrates that she has dense breast tissue (breast density category C or D), which could hide abnormalities, and if she has other risk factors for breast cancer that have bee n identified, she might benefit from supplemental screening tests that may be suggested by you as her ordering physician. Dense breast tissue, in and of itself, is a relatively common condition. Therefo re, this information is not provided to cause undue concern, but rather to raise your awareness and t o promote discussion with your patient regarding the presence of other risk factors, in addition to d ense breast tissue. This patient's information has been entered into a reminder system for the patient to be notified wit h the results of her examination by mail and a target date for the next mammogram. A reminder letter will be generated. Electronically signed by: Hanna Millan MD (03/26/2021 5:13 PM) [id number]
== END ==
LOC: KCIC MAMMO 13:29
PROVIDERS: ATTEND Family Medicine
DX: Z12.31 Encounter for screening mammogram for malignant neoplasm of breast (principal)
CPT/HCPCS: 77063; 77067

== ENCOUNTER 2021-11-20 16:57 | Emergency (ER) | payer MEDICARE ==
[~2021-11-20] VITALS: Ht 160 cm; Wt 74.2 kg
[2021-11-20] MEDS ORDERED: ACETAMINOPHEN 325 MG TABLET. PO ONE (17:00)
--- NOTE | 2021-11-20 17:58 | RAD ---
EXAMINATION: CT HEAD AND MAXILLOFACIAL WO, CT CERVICAL SPINE WO CLINICAL HISTORY: Head and neck and facial pain following fall. Mechanical fall with forehead hematom a, daily ASA. TECHNIQUE: Serial axial images without IV contrast were obtained from the vertex to the foramen magnum. Spiral high resolution axial unenhanced images were obtained through the facial bones with sagittal a nd coronal planar reconstructions. CT of the cervical spine without IV contrast. Spiral, high resolution axial images were obtained from the skull base to the cervicothoracic junction with sagittal and coronal planar reconstructions. CT Dose Reduction Employed: One or more of the following individualized dose reduction techniques wer e utilized for this examination: 1. Automated exposure control 2. Adjustment of the mA and/or kV ac cording to patient size 3. Use of iterative reconstruction technique. COMPARISON: MRI brain 11/29/2018 FINDINGS: BRAIN: Acute Change: Tiny subcutaneous contusion along the inferolateral right frontal scalp. No evidence of an acute contusion or other acute parenchymal process. Hemorrhage: No evidence of acute intracranial hemorrhage. Mass Lesion/Mass Effect: No evidence of intracranial mass or extraaxial fluid collection. No signific ant mass effect. Chronic Change: Scattered patchy foci of hypoattenuation in the supratentorial white matter, nonspeci fic but likely represents mild microvascular ischemia. Atherosclerotic calcification of the anterior and posterior circulation. Parenchyma: Mild generalized volume loss. Ventricles: Ventricular enlargement concordant with degree of parenchymal volume loss. Skull Base: No evidence of acute calvarial fracture. MAXILLOFACIAL: Soft Tissues: No significant superficial soft tissue swelling. Facial Bones: No evidence of acute facial bone fracture. Degenerative changes bilateral temporomandib ular joints. Orbits: No evidence of acute orbital fracture. Globes are intact with bilateral intraocular lens impl ants. Soft tissue planes of the orbits maintained. Paranasal Sinuses: No significant sinus disease. Other: Moderate nasal septal deviation to the left. C-SPINE: Alignment: Grade 2 C4-5 and C5-6 anterolistheses with focal kyphosis at C5-6. Osseous Structures: No evidence of acute fracture. Degenerative Changes: Altered level degenerative disc disease, severe at C5-6, C6-7, and C7-T1. Multi level neural foraminal narrowing, greatest in the lower cervical spine. No evidence of high-grade oss eous spinal stenosis. Multilevel facet arthropathy. Cervical Soft Tissues: No prevertebral soft tissue swelling. Vascular calcifications. IMPRESSION: BRAIN: Tiny subcutaneous contusion right frontal scalp. No evidence of acute intracranial abnormality. MAXILLOFACIAL: No evidence of acute facial bone fracture. C-SPINE: No evidence of acute osseous abnormality involving the cervical spine. Grade 2 C4-5 and C5-6 anterolistheses with focal kyphosis at C5-6. Multilevel degenerative findings as described. Electronically signed by: Tristan Cota DO (11/20/2021 5:56 PM) ITA
--- NOTE | 2021-11-20 18:16 | RAD ---
Exam: Right clavicle 2 views. Right shoulder 3 views INDICATION: Pain, fall TECHNIQUE: Frontal and axillary views of the right clavicle. Frontal view of the right shoulder with internal and external rotation and transscapular Y views Comparisons: None FINDINGS: Clavicle: Bone mineralization is normal. No acute or healed fractures. Soft tissues are unremarkable. Joint spa azar are well-maintained. Shoulder: Bone mineralization is normal. No acute or healed fractures. Soft tissues are unremarkable. Joint spa azar are well-maintained. IMPRESSION: No acute osseous abnormality right shoulder or right clavicle Electronically signed by: Marzena Patterson MD (11/20/2021 6:13 PM) VETO
--- NOTE | 2021-11-20 18:25 | RAD ---
EXAM: XR KNEE 4 VIEWS WITH PATELLA_RT 11/20/2021 5:36 PM CLINICAL INDICATION: Pain after mechanical fall COMPARISON: Knee radiograph 09/02/2017 TECHNIQUE: AP, oblique, lateral, and sunrise views of the right knee FINDINGS: There is a right total knee prosthesis. No periprosthetic lucency or fracture. Small joint effusion. IMPRESSION: Unchanged right total knee prosthesis. No acute abnormality. Electronically signed by: Jyothi Coates MD (11/20/2021 6:23 PM) [id number]
--- NOTE | 2021-11-20 18:44 | PHYS DOC ---
Past Medical History Past Medical History: Cancer (lung), CHF, Constipation, COPD, Depression, Diverticulosis, GERD, Hypertension, Lung Disease, Sinusitis, UTI Additional Past Medical Histor: llung cancer, "back slipped disc" 3 x breast bx (FLORES YEAGER) Additional Past Surgical Histo: R lower lobe lung resection after cancer,periph neuro,bilat knee,feet (FLORES YEAGER) Smoking Status: Never Smoker Alcohol Use: None (FLORES YEAGER) General Adult EDM: Chief Complaint: MECHANICAL FALL HPI: HPI: Patient is a 81 year old female who presents via EMS with forehead hematoma, knee pain and shoulder pain status post mechanical fall. She reports 2/10 pain surrounding the hematoma on her forehead only. Patient states that she was turning away from her car to walk into her building, when she stumbled over a rounded area on the pavement. She states she fell onto her right knee, and then onto her right side including her forehead. Patient takes aspirin daily, but is otherwise not on any anticoagulants. Patient denies loss of consciousness, seizure-like activity, headache, neck pain, nausea/vomiting, paresthesias. (FLORES YEAGER) Review of Systems: Review of Systems: ROS negative or noncontributory except as mentioned in HPI. (FLORES YEAGER) Heart Score: C/O Chest Pain: No (FLORES YEAGER) Current Medications: Current Medications Medications (Trade) Dose Ordered Sig/Odette Start Time Stop Time Status Last Admin Dose Admin Acetaminophen (Tylenol) 650 mg 1X ONCE 11/20/21 17:00 11/20/21 17:01 DC 11/20/21 17:49 650 MG (FLORES YEAGER) Allergies: Allergies: Allergies Coded Allergies Type Severity Reaction Last Updated Verified No Known Drug Allergies 11/20/21 No (FLORES YEAGER) Physical Exam: PE: Constitutional: Well developed, well nourished, no acute distress, non-toxic appearance. HENT: Left upper forehead hematoma measuring 1.5 cm x 1.5 cm without bogginess or palpable skull fracture, bilateral external ears normal, nose normal. Eyes: PERRL, EOMI, conjunctiva normal, no discharge. Neck: Normal range of motion, no tenderness, no stridor. Cardiovascular: Heart rate regular rhythm, no murmur. Lungs & Thorax: Equal thoracic expansion, no increased work of breathing, no crepitus or chest wall tenderness appreciated. Skin: See above for forehead hematoma, superficial pink abrasion noted on the right shoulder. Skin otherwise warm, dry, no erythema, no rash. Back: No step-off, no tenderness. Extremities: Right shoulder tender on superior/anterior aspects with ROM intact, R knee tender without abrasion and limited ROM secondary to pain, bilateral feet contracture consistent with prior surgeries. Extremities otherwise no cyanosis, ROM intact, no edema. Neurologic: Alert and oriented x4, normal motor function, normal sensory function, no focal deficits noted. (FLORES YEAGER) Current Patient Data: Vital Signs: Vital Signs Date Time Temp Pulse Resp B/P (MAP) Pulse Ox O2 Delivery O2 Flow Rate FiO2 11/20/21 17:49 78 14 182/93 (122) 96 11/20/21 17:19 74 14 164/82 (109) 96 11/20/21 17:00 74 16 151/111 (124) 96 11/20/21 16:58 98.5 85 16 151/111 (124) 95 98.5 (FLORES YEAGER) Radiology/Procedures: Radiology/Procedures: PROCEDURE: CT HEAD AND MAXILLOFACIAL WO EXAMINATION: CT HEAD AND MAXILLOFACIAL WO, CT CERVICAL SPINE WO CLINICAL HISTORY: Head and neck and facial pain following fall. Mechanical fall with forehead hematoma, daily ASA. TECHNIQUE: Serial axial images without IV contrast were obtained from the vertex to the foramen magnum. Spiral high resolution axial unenhanced images were obtained through the facial bones with sagittal and coronal planar reconstructions. CT of the cervical spine without IV contrast. Spiral, high resolution axial images were obtained from the skull base to the cervicothoracic junction with sagittal and coronal planar reconstructions. CT Dose Reduction Employed: One or more of the following individualized dose reduction techniques were utilized for this examination: 1. Automated exposure control 2. Adjustment of the mA and/or kV according to patient size 3. Use of iterative reconstruction technique. COMPARISON: MRI brain 11/29/2018 FINDINGS: BRAIN: Acute Change: Tiny subcutaneous contusion along the inferolateral right frontal scalp. No evidence of an acute contusion or other acute parenchymal process. Hemorrhage: No evidence of acute intracranial hemorrhage. Mass Lesion/Mass Effect: No evidence of intracranial mass or extraaxial fluid collection. No significant mass effect. Chronic Change: Scattered patchy foci of hypoattenuation in the supratentorial white matter, nonspecific but likely represents mild microvascular ischemia. Atherosclerotic calcification of the anterior and posterior circulation. Parenchyma: Mild generalized volume loss. Ventricles: Ventricular enlargement concordant with degree of parenchymal volume loss. Skull Base: No evidence of acute calvarial fracture. MAXILLOFACIAL: Soft Tissues: No significant superficial soft tissue swelling. Facial Bones: No evidence of acute facial bone fracture. Degenerative changes bilateral temporomandibular joints. Orbits: No evidence of acute orbital fracture. Globes are intact with bilateral intraocular lens implants. Soft tissue planes of the orbits maintained. Paranasal Sinuses: No significant sinus disease. Other: Moderate nasal septal deviation to the left. C-SPINE: Alignment: Grade 2 C4-5 and C5-6 anterolistheses with focal kyphosis at C5-6. Osseous Structures: No evidence of acute fracture. Degenerative Changes: Altered level degenerative disc disease, severe at C5-6, C6-7, and C7-T1. Multilevel neural foraminal narrowing, greatest in the lower cervical spine. No evidence of high-grade osseous spinal stenosis. Multilevel fa cet arthropathy. Cervical Soft Tissues: No prevertebral soft tissue swelling. Vascular calcifications. IMPRESSION: BRAIN: Tiny subcutaneous contusion right frontal scalp. No evidence of acute intracranial abnormality. MAXILLOFACIAL: No evidence of acute facial bone fracture. C-SPINE: No evidence of acute osseous abnormality involving the cervical spine. Grade 2 C4-5 and C5-6 anterolistheses with focal kyphosis at C5-6. Multilevel degenerative findings as described. Electronically signed by: Tristan Cota DO (11/20/2021 5:56 PM) [facility]: SHOULDER 2+V RIGHT Exam: Right clavicle 2 views. Right shoulder 3 views INDICATION: Pain, fall TECHNIQUE: Frontal and axillary views of the right clavicle. Frontal view of the right shoulder with internal and external rotation and transscapular Y views Comparisons: None FINDINGS: Clavicle: Bone mineralization is normal. No acute or healed fractures. Soft tissues are unremarkable. Joint spaces are well-maintained. Shoulder: Bone mineralization is normal. No acute or healed fractures. Soft tissues are unremarkable. Joint spaces are well-maintained. IMPRESSION: No acute osseous abnormality right shoulder or right clavicle Electronically signed by: Marzena Patterson MD (11/20/2021 6:13 PM) [facility] PROCEDURE: KNEE RIGHT 4V EXAM: XR KNEE 4 VIEWS WITH PATELLA_RT 11/20/2021 5:36 PM CLINICAL INDICATION: Pain after mechanical fall COMPARISON: Knee radiograph 09/02/2017 TECHNIQUE: AP, oblique, lateral, and sunrise views of the right knee FINDINGS: There is a right total knee prosthesis. No periprosthetic lucency or fracture. Small joint effusion. IMPRESSION: Unchanged right total knee prosthesis. No acute abnormality. Electronically signed by: Jyothi Coates MD (11/20/2021 6:23 PM) [id number] (FLORES YEAGER) Course & Med Decision Making: Course & Med Decision Making Pertinent Labs and Imaging studies reviewed. (See chart for details) Patient is an 81-year-old female not on any daily anticoagulant therapy who presents status post mechanical fall. CT images and plain films are negative for any acute abnormalities at this time. Patient states that her pain is much improved after administration of Tylenol. Patient was provided with electronic prescription for muscle relaxer, should she experience muscle pain/spasm in the next few days. Return precautions were provided. Patient understands and is agreeable to discharge plan. She will be provided with a cab voucher to return home. (FLORES YEAGER) Dragon Disclaimer: Dragon Disclaimer: This electronic medical record was generated, in whole or in part, using a voice recognition dictation system. (FLORES YEAGER) Departure Departure Impression: Primary Impression: Forehead contusion Qualified Codes: S00.83XA - Contusion of other part of head, initial encounter Additional Impressions: Contusion of right shoulder, initial encounter Contusion of right knee, initial encounter Disposition: HOME / SELF CARE / HOMELESS Condition: STABLE Referrals: SHAY WARREN MD (PCP) Patient Instructions: Facial or Scalp Contusion, [id number], RICE - Routine Care for Injuries, [id number] Additional Instructions: EMERGENCY DEPARTMENT GENERAL DISCHARGE INSTRUCTIONS Thank you for coming to [facility] Emergency Department (ED) today and trusting us with you care. We trust that you had a positive experience in our Emergency Department. If you wish to speak to the department management, you may call the director at . YOUR FOLLOW UP INSTRUCTIONS ARE FOLLOWS: 1. Follow up with your primary care doctor. If you do not have a primary doctor, please ask for a resource list of physicians or clinics that may be able to assist you with follow up care. 2. The emergency provider has interpreted your imaging studies, if any were ordered. The radiology ergonomic specialist also reviewed them. If there is a change in the findings, you will be notified in 48 hours when at all possible. 3. If a lab test or culture has been done, your results will be reviewed and you will be notified if you need a change in treatment. 4. Follow instructions verbalized to you and refer to the printouts if needed. ADDITIONAL INSTRUCTIONS AND INFORMATION: 1. Your care today has been supervised by a physician who is specially trained in emergency care. Many problems require more than one evaluation for a complete diagnosis and treatment. We recommend that you schedule your follow up appointment as recommended to ensure complete treatment of you illness or injury. If you are unable to obtain follow up care and continue to have a problem, or if your condition worsens, we recommend that you return to the ED. 2. We are not able to safely determine your condition over the phone nor are we able to give sound medical advice over the phone. For these safety reasons, if you call for medical advice we will ask you to come to the ED for further evaluation. 3. If you have any questions regarding these discharge instructions please call the ED at . SAFETY INFORMATION: In the interest of safety, wellness, and injury prevention; we encourage you to wear your seat belt, if you smoke; quite smoking, and we encourage family to use a protective helmet for bicycling and other sporting events that present an increased risk for head injury. IF YOUR SYMPTOMS WORSEN OR NEW SYMPTOMS DEVELOP, OR YOU HAVE CONCERNS ABOUT YOUR CONDITION; OR IF YOUR CONDITION WORSENS WHILE YOU ARE WAITING FOR YOUR FOLLOW UP APPOINTMENT; EITHER CONTACT YOUR PRIMARY CARE DOCTOR, THE PHYSICIAN WHOSE NAME AND NUMBER YOU WERE GIVEN, OR RETURN TO THE ED IMMEDIATELY. Scripts Orphenadrine Citrate (ORPHENADRINE CITRATE) 100 Mg Tablet.er 1 TAB PO BID for 5 Days, #10 TAB 00 Refills Prov: FLORES YEAGER 11/20/21 Attending Signature Attending Signature I have reviewed the PA/RESEARCH AND DEVELOPMENT MANAGER's note and plan of care. I was available for consultation as needed during the patient's visit in the emergency department. I agree with the clinical impression, plan, and disposition. (ABILIO CAMERON DO) FLORES YEAGER November 20, 2021 18:44 ABILIO CAMERON DO Dec 04, 2021 14:27
[2021-11-20 18:49] VITALS: BP 187/90
[2021-11-20] MEDS ORDERED: ORPH100T PO (18:50)
== END 2021-11-20 20:07 | disposition home or self-care (01) ==
LOC: ER 16:57
DX: S00.83XA Contusion of other part of head, initial encounter (principal); S40.011A Contusion of right shoulder, initial encounter; S80.01XA Contusion of right knee, initial encounter; J44.9 Chronic obstructive pulmonary disease, unspecified; K21.9 Gastro-esophageal reflux disease without esophagitis; I11.0 Hypertensive heart disease with heart failure; I50.9 Heart failure, unspecified; W18.39XA Other fall on same level, initial encounter; Y93.89 Activity, other specified; Y92.89 Other specified places as the place of occurrence of the external cause; Y99.8 Other external cause status
CPT/HCPCS: 70450; 70486; 72125; 73000; 73030; 73564; 99285-25